=== PATIENT | male | born 1950 | race Caucasian/White ===

== ENCOUNTER 2024-05-21 11:20 | Day surgery (SDC) | payer OTHER ==
[~2024-05-21] VITALS: Ht 177.8 cm; Wt 76.2 kg
[2024-05-21] VITALS (11 sets, daily range): BP systolic 114–145; BP diastolic 75–108
[~2024-05-21 11:20] MED LIST: AMPDEX10CR PO; ASPI325 PO; ATOR40TA PO; Aspir 8181 MG PO; Atarax10 MG PO; BUDE.25 INH; CILO100 PO; GLIP10 PO; HYDPAM25 PO; JARDIANCE25 MG PO; LISI20 PO; LISI5 PO; METF500 PO; OMEGA-3 FISH O1 EA20 PO; PIOG30 PO; TRIA80TC TOP
[2024-05-21] MEDS ORDERED: Heparin Sodium 1000 Units/ML 10ML MDV ONE ×3 (12:35→13:41)
[2024-05-21] MEDS ORDERED: NS 1,000 ML IV ONE ×2 (12:36→12:38)
[2024-05-21] MEDS ORDERED: NS 500 ML IV ONE (12:38)
[2024-05-21] MEDS ORDERED: Midazolam HCl 1MG / ML 2ML Vial ONE ×2 (12:55)
[2024-05-21] MEDS ORDERED: FentaNYL Citrate 50 MCG/ML 2 ML Injection ONE ×2 (12:55)
[2024-05-21] MEDS ORDERED: Verapamil HCL 2.5 MG/ML 2ML Injection ONE (13:47)
[2024-05-21] MEDS ORDERED: Nitroglycerin 2 MG/20 ML BTL ONE (13:47)
--- NOTE | 2024-05-21 15:00 | NUR ---
[facility], site stable
--- NOTE | 2024-05-21 16:39 | NUR ---
Dr Shepherd in to see patient.
--- NOTE | 2024-05-21 17:05 | NUR ---
patient verbalized undrstanding of discharge instructions and precautions. IV site dced with catheter intact. left femoral artery site soft and nontender, no hematoma, no bleeding. right pedal site dressing D&I, no swelling, no bleeding.
--- NOTE | 2024-05-21 17:50 | NUR ---
patient discharged home via wheelcahir, friend driving
== END 2024-05-21 23:00 | disposition home or self-care (01) ==
LOC: MHTC 11:20
DX: E11.51 Type 2 diabetes mellitus with diabetic peripheral angiopathy without gangrene (principal); I70.223 Atherosclerosis of native arteries of extremities with rest pain, bilateral legs; I87.2 Venous insufficiency (chronic) (peripheral); I83.93 Asymptomatic varicose veins of bilateral lower extremities; D75.1 Secondary polycythemia; I10 Essential (primary) hypertension; F17.210 Nicotine dependence, cigarettes, uncomplicated; Z79.82 Long term (current) use of aspirin; Z79.84 Long term (current) use of oral hypoglycemic drugs; Z79.899 Other long term (current) drug therapy
CPT/HCPCS: 36247; 75625; 75716; 75774; 76937; 99152; 99153; C1725; C1760; C1769; C1887; C1894; C9764; J1644; J2250; J3010; J7030; J7050; Q9967

== ENCOUNTER 2024-07-08 07:10 | Day surgery (SDC) | payer OTHER ==
[~2024-07-08] VITALS: Ht 177.8 cm; Wt 76.2 kg
[2024-07-08 13:30] VITALS: BP 153/89
== END 2024-07-08 14:50 | disposition home or self-care (01) ==
LOC: MHTC 07:10
DX: E11.51 Type 2 diabetes mellitus with diabetic peripheral angiopathy without gangrene (principal); I70.223 Atherosclerosis of native arteries of extremities with rest pain, bilateral legs; I10 Essential (primary) hypertension; F17.210 Nicotine dependence, cigarettes, uncomplicated; Z79.899 Other long term (current) drug therapy; Z79.84 Long term (current) use of oral hypoglycemic drugs

== ENCOUNTER 2024-11-11 08:47 | Day surgery (SDC) | payer OTHER ==
[2024-11-11] VITALS (9 sets, daily range): BP systolic 117–157; BP diastolic 59–97
[~2024-11-11] VITALS: Ht 177.8 cm; Wt 74.8 kg
[~2024-11-11 08:47] MED LIST changes: +CLOP75 PO
[2024-11-11] MEDS ORDERED: NS 1,000 ML IV ONE ×2 (09:39→10:05)
[2024-11-11] MEDS ORDERED: Nitroglycerin 2 MG/20 ML BTL ONE (09:39)
[2024-11-11] MEDS ORDERED: NS 250 ML IV ONE (09:39)
[2024-11-11] MEDS ORDERED: Heparin Sodium 1000 Units/ML 10ML MDV ONE ×2 (09:39→10:05)
[2024-11-11] MEDS ORDERED: Midazolam HCl 1MG / ML 2ML Vial ONE ×2 (10:04→10:49)
[2024-11-11] MEDS ORDERED: FentaNYL Citrate 50 MCG/ML 2 ML Injection ONE ×2 (10:05→10:49)
[2024-11-11] MEDS ORDERED: Verapamil HCL 2.5 MG/ML 2ML Injection ONE (11:15)
--- NOTE | 2024-11-11 12:50 | NUR ---
PATIENT ARRIVED BACK TO RECOVERY ROOM WITH HOB FLAT. LEFT GROIN SITE C/D/I SOFT/NONTENDER, NO EVIDENCE OF BLEEDING. DOPPLER PULSES PRESENT. DP ACCESS C/D/I SOFT/NONTENDER, NO EVIDENCE OF BLEEDING. VSS ON RA. PATIENT DENYING ANY PAIN.
--- NOTE | 2024-11-11 13:18 | NUR ---
PATIENT RESTING COMFORTABLY IN BED. VSS ON RA . LEFT GROIN SITE C/D/I SOFT/NONTENDER, NO EVIDENCE OF BLEEDING. DP SITE C/D/I. DOPPLER PULSES PRESENT. PATIENT DENYING ANY PAIN.
--- NOTE | 2024-11-11 13:30 | NUR ---
HOB ELEVATED 30 DEGREES. LEFT GROIN SITE C/D/I SOFT/NONTENDER. RIGHT DP SITE C/D/I SOFT/NONTENDER. VSS ON RA. PATIENT TOLERATING PO INTAKE WELL. PATIENT DENYING ANY PAIN.
--- NOTE | 2024-11-11 13:58 | NUR ---
HOB ELEVATED 45 DEGREES. LEFT GROIN SITE C/D/I SOFT/NONTENDER, NO EVIDENCE OF BLEEDING. VSS ON RA. DP SITE C/D/I.
--- NOTE | 2024-11-11 14:30 | NUR ---
PATIENT AMBULATING TO RESTROOM WITHOUT DIFFICULTY. LEFT GROIN SITE C/D/I SOFT/NONTENDER, NO EVIDNECE OF BLEEDING. RIGHT DP ACCCESS C/D/I. PATIENT DISCHARGE INSTRUCTIONS REVIEWED, ALL QUESTIONS WERE ANSWERED.
--- NOTE | 2024-11-11 14:45 | NUR ---
PATIENT DISCHARGED HOME AT THIS TIME. ALL QUESTIONS WERE ANSWERED. PIV REMOVED WITHOUT DIFFICULTY,C ATHETER INTACT. VSS ON RA. PATIENT BELONGINGS AND PAPERWORK LEFT WITH PATIENT. PATIENT WHEELED TO HOSPITAL ENTRANCE AND FRIEND ABLE TO PROVIDE TRANSPORTATION HOME.
== END 2024-11-11 14:45 | disposition home or self-care (01) ==
LOC: MHTC 08:47
DX: E11.51 Type 2 diabetes mellitus with diabetic peripheral angiopathy without gangrene (principal); I70.221 Atherosclerosis of native arteries of extremities with rest pain, right leg; I87.2 Venous insufficiency (chronic) (peripheral); I83.93 Asymptomatic varicose veins of bilateral lower extremities; I10 Essential (primary) hypertension; F17.210 Nicotine dependence, cigarettes, uncomplicated; D75.1 Secondary polycythemia; Z79.82 Long term (current) use of aspirin; Z79.84 Long term (current) use of oral hypoglycemic drugs; Z79.899 Other long term (current) drug therapy
CPT/HCPCS: 36140; 36200; 75625; 75716; 75774; 76937; 85347; 99152; 99153; C1725; C1760; C1769; C1887; C1894; C2623; C9764; J1644; J2250; J3010; J7030; J7050; Q9967